=== PATIENT | male | born 1990 | race Caucasian/White ===

== ENCOUNTER 2018-07-04 12:17 | Emergency (ER) | payer OTHER ==
[~2018-07-04] VITALS: Ht 172.7 cm; Wt 83.9 kg
[2018-07-04 13:31] LABS: HEMATOCRIT 44.8 % (42.0-52.0); HEMOGLOBIN 14.6 gm/dL (14.0-18.0); MCH 23.4 pg (26.0-34.0); MCHC 32.6 g/dL (28.0-37.0); MCV 71.7 fL (80.0-100.0); RBC 6.24 mil/uL (4.50-6.00); RDW 14.8 % (10.5-14.5); WBC 8.4 thou/uL (4.0-11.0)
[2018-07-04 13:43] LABS: CREATININE 0.9 mg/dL (0.7-1.3); POTASSIUM 4.1 mmol/L (3.5-5.1)
--- NOTE | 2018-07-04 14:00 | EKG ---
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: RAFIA : 1990 Requested By: Ronald Bergman Order Number: [id number] MD: Erickson Negrete Measurements Intervals [place] Rate: 75 P: 44 CA: 151 QRS: 37 QRSD: 98 T: 41 QT: 379 QTc: 424 Interpretive Statements Sinus rhythm Probable left atrial enlargement ST elev, probable normal early repol pattern No previous ECG available for comparison Electronically Signed On 07-04-2018 14:00:05 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
[2018-07-04 14:30] VITALS: BP 121/65
== END 2018-07-04 14:31 | disposition home or self-care (01) ==
LOC: ER 12:17
PROVIDERS: Physician Assistant
DX: R07.89 Other chest pain (principal); F17.210 Nicotine dependence, cigarettes, uncomplicated